=== PATIENT | female | born 1970 | race Caucasian/White ===

== ENCOUNTER 2025-03-14 16:21 | Outpatient (CLI) | payer MEDICAID, MEDICARE ==
--- NOTE | 2025-03-15 08:18 | RADIOLOGY REPORT ---
CLINICAL HISTORY: Hamstring injury, possible tear. TECHNIQUE: Multi sequence multi planar MRI images of the right thigh were obtained without IV contra st. COMPARISON: None FINDINGS: There is rupture of the hamstring tendons near their origins, with attenuated, indistinct tendon fibers of the ischial tuberosity origins and full-thickness disruption of the tendon fibers sl ightly distal to the origin, with a torn retracted semimembranosus tendon visualized approximately 3. 9 cm distal to the origin, with laxity of the more distal aspects of the proximal semimembranosus ten don and surrounding hematoma measuring up to 3.9 x 3.8 x 18.9 cm along the proximal hamstring musculo tendinous junctions and interposed between the semimembranosus and semitendinosus muscles. There also appears to be full-thickness disruption of the common origin of the biceps femoris and semitendinosu s tendons just distal to the origin with what appears to be retracted tendon fibers up to 7.5 cm dist al to the origin, although poorly delineated. There is mild intramuscular edema in the proximal fiber s of the semimembranosus, semitendinosus, and biceps femoris muscles. Osseous structures are intact. No evidence of acute fracture or focal marrow contusion. No marrow edema of the ischial tuberosity. T race popliteal cyst partially visualized. IMPRESSION: Proximal hamstring tendon rupture as detailed above with associated large hematoma.
== END 2025-03-14 23:59 | disposition home or self-care (01) ==
LOC: MRI02 16:21
PROVIDERS: ATTEND Physician Assistant Surgical
DX: S76.311A Strain of muscle, fascia and tendon of the posterior muscle group at thigh level, right thigh, initial encounter (principal); S73.191A Other sprain of right hip, initial encounter; R60.0 Localized edema; X58.XXXA Exposure to other specified factors, initial encounter; Y93.9 Activity, unspecified; Y92.89 Other specified places as the place of occurrence of the external cause; Y99.8 Other external cause status; Y93.89 Activity, other specified
CPT/HCPCS: 73718